=== PATIENT | male | born 1995 | race Caucasian/White ===

== ENCOUNTER 2021-01-24 17:13 | Emergency (ER) | payer MEDICAID, SELFPAY ==
[2021-01-24 17:14] VITALS: BP 123/63; PULSE 66; RESP 14; TEMP 36.7; O2SAT 100; BMI 17.2
--- NOTE | 2021-01-24 17:41 | RAD_ITS ---
STUDY: X-RAY - FACIAL BONES REASON FOR STUDY: Male, 25 years old. lip foreign body -- UNABLE TO REMOVE LIP RING- patient believes to have lost his other lip piercing on his left side of lip. TECHNIQUE: 3 view(s) of the facial bones. COMPARISON: None. FINDINGS: 1.42 cm semicircular metallic jewelry of the lip noted. No additional radiopaque foreign body is seen. Multiple dental fillings noted. Normal bilateral frontozygomatic and zygomatic-temporal arches. Normal bilateral medial and inferior orbital carrasco. Normal bilateral orbits. Normal visualized nasal bones. Normal anterior nasal spine. The remaining visualized osseous structures are normal. There is no demonstrated fracture. Normal visualized paranasal sinuses. RAD/Facial Bones min 3 Views IMPRESSION: 1.42 cm semicircular metallic jewelry of the lip noted. No additional radiopaque foreign body is seen. Multiple dental fillings noted. Electronically Signed: Luis Stout MD at 19:29 EDT , Service support ,
--- NOTE | 2021-01-24 17:42 | EX.ED.DYSGE1 ---
HPI History of Present Illness Chief Complaint: Foreign Body Informant: patient Narrative Narrative: Patient is concerned about a lip foreign body. He removed his left lip ring yesterday and he is concerned that one of the ball caps on the and is stuck in his soft tissue. He feels a hard nodule in this area. He denies any pain. He is not sure if he remove the entire ring at that time. PFSH PFSH Allergy/AdvReac Type Severity Reaction Status Date / Time No Known Allergies Allergy Verified 01/24/21 17:14 ROS ROS ED Constitutional Constitutional ED: Denies chills or fever(s) Eyes Eyes: Denies blurry vision, change in vision, diplopia or loss of vision ENT ENT ED: Reports other; Denies ear pain, rhinorrhea or sore throat Cardiovascular Cardiovascular: Denies chest pain, palpitations or racing heartbeat Respiratory/Chest Respiratory/Chest: Denies cough, dyspnea, dyspnea on exertion or sputum Gastrointestinal Gastrointestinal: Denies abdominal pain, diarrhea, nausea or vomiting Genitourinary Genitourinary ED: Denies dysuria, hematuria or urinary frequency Musculoskeletal Musculoskeletal: Denies back pain, myalgias or neck pain Integumentary Denies abscess or rash Neurologic Neurologic: Denies headache(s) or weakness Psychiatric Psychiatric: Denies anxiety or depression Endocrine Endocrinology: Denies polydipsia or polyuria Hematologic/Lymphatic Hematologic/Lymphatic: Denies easy bleeding or easy bruising Allergic/Immunologic Allergic/Immunologic ED: Denies urticaria EXAM Physical Exam Const Vital Signs: 01/24/21 17:14 Temperature 98.0 F Temperature Source Temporal Pulse Rate 66 Respiratory Rate 14 Blood Pressure 123/63 H Blood Pressure Mean 83 Pulse Ox 100 Oxygen Delivery Method Room Air Positive well nourished and well developed General Appearance ED: well developed HEENT HEENT Narrative: The left lower lip just below the vermilion border does have a nodule. No foreign body is seen from the skin. Negative for trauma or tenderness Eyes PERRL and EOMs intact bilaterally Neck supple Neuro oriented x3 and CN's II-XII intact bilaterally Sensorium / Orientation: alert Motor Exam: strength 5/5 throughout Psych mental status grossly normal Skin no rashes or lesions noted MDM MDM MDM Narrative Medical decision making narrative: X-rays of the face were obtained and shows no foreign bodies. He will be discharged Discharge Plan Triage Chief Complaint: Foreign Body ED Provider: Max Gaston Dx/Rx/DC Orders Clinical Impression: No problem, feared complaint unfounded Instructions: ED Foreign Body Soft Tissue Primary Care Provider: Care Physician,No Primary Referrals: Care Physician,No Primary [Primary Care Provider] - Disposition Disposition: Home, self care
== END 2021-01-24 18:36 | disposition home or self-care (01) ==
PROVIDERS: Emergency Provider Emergency Medicine
DX: Z71.1 Person with feared health complaint in whom no diagnosis is made (principal)
CPT/HCPCS: 70150; 99282

== ENCOUNTER 2021-04-26 14:45 | Emergency (ER) | payer MEDICAID, SELFPAY ==
[2021-04-26 14:45] VITALS: BP 114/66; PULSE 60; RESP 15; TEMP 36.4; O2SAT 100; BMI 17.5
--- NOTE | 2021-04-26 17:40 | EDS_ITS ---
HPI History of Present Illness Chief Complaint: Eye Problem Narrative Narrative: Patient presents with bilateral wrist pain, right eye pain and some redness for the past 2 to 3 days. No vision changes. No fever chills. The wrist pain is chronic he works with his hands and this is been ongoing for months to years. [facility] Home Medications Unobtainable 01/24/21 [History Last Taken Unknown] Allergy/AdvReac Type Severity Reaction Status Date / Time No Known Allergies Allergy Verified 01/24/21 17:14 Social History Smoking Status: Unknown if ever smoked ROS ROS ED ROS Narrative Past medical history: Reviewed, unremarkable Medications: Reviewed Social history: Noncontributory Review of systems: All systems negative except as indicated General: No fever Eyes: No visual changes, right eye lateral redness ENT: No upper airway congestion, normal voice Neck: No neck pain Cardiovascular: No chest pain Respiratory: No shortness of breath or cough Gastrointestinal: No abdominal pain, nausea vomiting or diarrhea Genitourinary: No dysuria Musculoskeletal: Wrist pain. Skin: No rash EXAM Physical Exam Narrative Exam Narrative: Physical exam General: Well nourished, Well developed, No Acute Distress Head: Normocephalic, Atraumatic Eyes: Conjunctiva not pale. Right eye shows very slight conjunctivitis lateral eye region does not involved the central medial part of the eye. No foreign body. ENT: Moist mucous membranes Neck: Supple, Nontender, No lymphadenopathy Cardiovascular: Regular rate, Regular rhythm Respiratory: No distress, CTA bilaterally Abdomen: Soft, Nontender, Nondistended Back: Nontender, Normal Inspection. Negative for: CVA tenderness Extremities: Bilateral wrist pain but full range of motion without any difficulty, no redness no effusions. Skin: Normal color, No rash Neurological: Alert, Normal Strength, Normal Sensation Const Vital Signs: 04/26/21 14:45 Temperature 97.5 F L Temperature Source Temporal Pulse Rate 60 Respiratory Rate 15 Blood Pressure 114/66 Blood Pressure Mean 82 Pulse Ox 100 Oxygen Delivery Method Room Air MDM MDM MDM Narrative Medical decision making narrative: Patient appears well, I will treat for conjunctivitis, stressed wrist pain he likely has mild arthritis or overuse syndrome. Regardless he is still to decrease his work and follow-up with PCP Discharge Plan Triage Chief Complaint: Eye Problem ED Provider: Anibal Lion Dx/Rx/DC Orders Clinical Impression: Conjunctivitis, Acute wrist pain Instructions: ED Conjunctivitis, Nonspecific Prescriptions: No Action Unobtainable RF: 0 Primary Care Provider: Care Physician,No Primary Referrals: Care Physician,No Primary [Primary Care Provider] - Disposition Disposition: Home, Self Care
== END 2021-04-26 18:01 | disposition home or self-care (01) ==
PROVIDERS: Emergency Provider Emergency Medicine
DX: H10.31 Unspecified acute conjunctivitis, right eye (principal); M25.531 Pain in right wrist; M25.532 Pain in left wrist
CPT/HCPCS: 99283

== ENCOUNTER 2021-10-04 08:36 | Emergency (ER) | payer MEDICAID, SELFPAY ==
[2021-10-04 08:36] VITALS: BP 134/78; PULSE 79; RESP 20; TEMP 36.8; O2SAT 100; BMI 17.2
--- NOTE | 2021-10-04 08:50 | EX.ED.DYSGE1 ---
HPI History of Present Illness Chief Complaint: Back Informant: patient Narrative Narrative: 26-year-old male presenting to the emergency department with a chief complaint of low back pain. Patient states that he woke yesterday morning with low back discomfort. He states that it feels like his muscles are tight and. He denies any radicular symptoms no bowel or bladder dysfunction. No fevers or rashes. No IV drug use. No red flag history. Patient states he has a history of scoliosis and notes that its been several years since he has had a problem with his back. He notes that he believes he slept wrong in the bed which resulted in his back injury [facility] Medical History (Updated 10/04/21 @ 08:[address] Antonio Rowe DO) Scoliosis Home Medications cyclobenzaprine 10 mg PO TID PRN #20 tablet 10/04/21 [Rx Last Taken Unknown] ibuprofen 600 mg PO Q6H PRN PRN #20 tablet 10/04/21 [Rx Last Taken Unknown] Allergy/AdvReac Type Severity Reaction Status Date / Time No Known Allergies Allergy Verified 10/04/21 08:39 Social History (Updated 10/04/21 @ 08:[address] Antonio Rowe DO) current gender identity: male Smoking Status: Unknown if ever smoked ROS ROS ED Constitutional Constitutional ED: Denies chills, fever(s) or weight loss Eyes Eyes: Denies change in vision or diplopia ENT ENT ED: Denies ear pain, rhinorrhea or sore throat Cardiovascular Cardiovascular: Denies chest pain, orthopnea, palpitations or racing heartbeat Respiratory/Chest Respiratory/Chest: Denies cough, dyspnea or orthopnea Gastrointestinal Gastrointestinal: Denies abdominal pain, diarrhea, nausea or vomiting Genitourinary Genitourinary ED: Denies dysuria, hematuria or urinary frequency Musculoskeletal Musculoskeletal: Reports back pain; Denies arthralgias or myalgias Integumentary Denies abscess or rash Neurologic Neurologic: Denies headache(s) or weakness Psychiatric Psychiatric: Denies anxiety, depression, suicidal ideation or suicidal thoughts Endocrine Endocrinology: Denies polydipsia, polyphagia or polyuria Allergic/Immunologic Allergic/Immunologic ED: Denies mouth swelling, tongue swelling or urticaria EXAM Physical Exam Const Vital Signs: 10/04/21 08:36 Temperature 98.2 F Temperature Source Oral Pulse Rate 79 Respiratory Rate 20 H Blood Pressure 134/78 H Blood Pressure Mean 96 Pulse Ox 100 Oxygen Delivery Method Room Air Positive well nourished and well developed General Appearance ED: well developed HEENT Reports normocephalic, head/scalp atraumatic, TM's clear and moist mucous membranes Negative for trauma Tympanic Membrane ED: Yes TM's clear Eyes PERRL and EOMs intact bilaterally Neck no lymphadenopathy, supple and no JVD Resp normal respiratory effort and clear to auscultation bilaterally Cardio regular rate, regular rhythm and no murmurs GI normal to inspection, nondistended, normoactive bowel sounds and non-tender Palpation: soft Back/Spine no CVA tenderness and normal ROM Back/Spine Narrative: Tender to palpation of the lumbar paraspinal musculature. There is no rashes or swelling to suggest underlying infection. Extremity normal to inspection General Extremety ED: Negative for edema General Extremity: Negative for edema Neuro oriented x3 and CN's II-XII intact bilaterally Neuro Narrative: +2 patellar and Achilles reflex Sensorium / Orientation: alert Motor Exam: strength 5/5 throughout Psych mental status grossly normal Mood & Affect: Negative for depressed or tearful Skin no rashes or lesions noted and no wounds MDM MDM MDM Narrative Medical decision making narrative: Patient will be started on anti-inflammatories as well as Flexeril. He needs a work note. Return if worsening or concerns Discharge Plan Triage Chief Complaint: Back ED Provider: Antonio Rowe Dx/Rx/DC Orders Clinical Impression: Lumbar paraspinal muscle spasm, Acute low back pain Instructions: Relieving Back Pain Prescriptions: New cyclobenzaprine [cyclobenzaprine] 10 MG tablet 10 mg PO TID PRN (Reason: Muscle Spasm) Qty: 20 RF: 0 ibuprofen 600 MG tablet 600 mg PO Q6H PRN PRN (Reason: fever or pain) Qty: 20 RF: 0 Primary Care Provider: Care Physician,No Primary Referrals: Luis Manuel Ramirez MD [STAFF PHYSICIAN] - As Needed Care Physician,No Primary [Primary Care Provider] - Disposition Disposition: Home, Self Care
== END 2021-10-04 09:16 | disposition home or self-care (01) ==
LOC: ED 09:05
PROVIDERS: Emergency Provider Emergency Medicine; Visit Provider Emergency Medicine
DX: M54.50 Low back pain, unspecified (principal); M62.830 Muscle spasm of back; M41.9 Scoliosis, unspecified
CPT/HCPCS: 99281; 99282

== ENCOUNTER 2022-01-15 17:00 | Emergency (ER) | payer MEDICAID, SELFPAY ==
[2022-01-15 17:01] VITALS: BP 105/72; PULSE 50; RESP 14; TEMP 36.8; O2SAT 97; BMI 17.2
--- NOTE | 2022-01-15 17:24 | EX.ED.DYSGE1 ---
HPI History of Present Illness Chief Complaint: Abd Pain Informant: patient Narrative Narrative: 26-year-old male states that this morning both he and his developed diarrhea and vomiting. No fevers. No URI symptoms. He describes the diarrhea as green. He also states that since the age of 10 he has had chronic back pain strictly on the right. He states he was diagnosed with scoliosis. I would like to know why his back is hurting him what to do. He has no primary care doctor. [facility] Medical History Scoliosis Home Medications cyclobenzaprine 10 mg PO TID PRN #20 tablet 10/04/21 [Rx Last Taken Unknown] ibuprofen 600 mg PO Q6H PRN PRN #20 tablet 10/04/21 [Rx Last Taken Unknown] ondansetron 4 mg PO Q6H PRN PRN #20 tab 01/15/22 [Rx Last Taken Unknown] Allergy/AdvReac Type Severity Reaction Status Date / Time No Known Allergies Allergy Verified 01/15/22 17:01 Social History (Updated 01/15/22 @ 17:[address] Antonio Rowe DO) current gender identity: male Smoking Status: Current every day smoker tobacco type: cigarettes ROS ROS ED Constitutional Constitutional ED: Denies chills or weight loss Eyes Eyes: Denies change in vision or diplopia ENT ENT ED: Denies ear pain, rhinorrhea or sore throat Cardiovascular Cardiovascular: Denies chest pain, orthopnea, palpitations or racing heartbeat Respiratory/Chest Respiratory/Chest: Denies cough, dyspnea or orthopnea Gastrointestinal Gastrointestinal: Reports diarrhea, nausea and vomiting; Denies abdominal pain Genitourinary Genitourinary ED: Denies dysuria, hematuria or urinary frequency Musculoskeletal Musculoskeletal: Reports back pain; Denies arthralgias or myalgias Integumentary Denies abscess or rash Neurologic Neurologic: Denies headache(s) or weakness Psychiatric Psychiatric: Denies anxiety, depression, suicidal ideation or suicidal thoughts Endocrine Endocrinology: Denies polydipsia, polyphagia or polyuria Allergic/Immunologic Allergic/Immunologic ED: Denies mouth swelling, tongue swelling or urticaria EXAM Physical Exam Const Vital Signs: 01/15/22 17:01 Temperature 98.2 F Temperature Source Temporal Pulse Rate 50 L Respiratory Rate 14 Blood Pressure 105/72 Blood Pressure Mean 83 Pulse Ox 97 Oxygen Delivery Method Room Air Positive well nourished and well developed General Appearance ED: well developed HEENT Reports normocephalic, head/scalp atraumatic, TM's clear and moist mucous membranes Negative for trauma Tympanic Membrane ED: Yes TM's clear Eyes PERRL and EOMs intact bilaterally Neck no lymphadenopathy, supple and no JVD Resp normal respiratory effort and clear to auscultation bilaterally Cardio regular rate, regular rhythm and no murmurs GI normal to inspection, nondistended, normoactive bowel sounds and non-tender Palpation: soft Back/Spine no CVA tenderness and normal ROM Extremity normal to inspection General Extremety ED: Negative for edema General Extremity: Negative for edema Neuro oriented x3 and CN's II-XII intact bilaterally Sensorium / Orientation: alert Motor Exam: strength 5/5 throughout Psych mental status grossly normal Mood & Affect: Negative for depressed or tearful Skin no rashes or lesions noted and no wounds MDM MDM MDM Narrative Medical decision making narrative: Basic blood work was normal including a white count of 8.4. Lipase CMP negative. Patient was encouraged to establish primary care as he has chronic low back issues and is not something were going to be able to treat in the emergency department. He received IV fluids Zofran and Imodium. I will write for Zofran at home. Continue Imodium Lab Data Attestation: I reviewed the patient's lab results. Labs: Laboratory Results - last 24 hr 01/15/22 01/15/22 18:00 18:00 WBC 8.4 RBC 4.59 L Hgb 14.4 Hct 41.2 MCV 89.8 MCH 31.4 MCHC 35.0 RDW Std Deviation 39.2 RDW Coeff of Patti 12.1 Plt Count 170 MPV 8.6 Immature Gran % (Auto) 0.200 Neut % (Auto) 75.4 H Lymph % (Auto) 14.1 L [place] % (Auto) 6.4 Eos % (Auto) 3.3 Baso % (Auto) 0.6 Absolute Neuts (auto) 6.3 Absolute Lymphs (auto) 1.19 Nucleated RBC % 0 Sodium 141 Potassium 3.5 Chloride 107 Carbon Dioxide 29.0 Anion Gap 5 BUN 12 Creatinine 0.92 Estim Creat Clear Calc 95.87 Est GFR (MDRD) Af Amer 127 Est GFR (MDRD) Non-Af 105 BUN/Creatinine Ratio 13.1 Glucose 102 Calcium 9.3 Total Bilirubin 1.60 H AST 13 L ALT 17 Alkaline Phosphatase 58 Total Protein 7.1 Albumin 4.2 Globulin 2.9 Albumin/Globulin Ratio 1.4 Lipase 109 Discharge Plan Triage Chief Complaint: Abd Pain ED Provider: Antonio Rowe Dx/Rx/DC Orders Clinical Impression: Gastroenteritis, Chronic back pain Instructions: ED Back and Neck Pain, General, ED Gastroenteritis, Viral (Adult) Prescriptions: New ondansetron [ondansetron] 4 MG tablet 4 mg PO Q6H PRN PRN (Reason: Nausea) Qty: 20 RF: 0 No Action cyclobenzaprine [cyclobenzaprine] 10 MG tablet 10 mg PO TID PRN (Reason: Muscle Spasm) Qty: 20 RF: 0 ibuprofen 600 MG tablet 600 mg PO Q6H PRN PRN (Reason: fever or pain) Qty: 20 RF: 0 Primary Care Provider: Care Physician,No Primary Referrals: Kodak Persaud MD [STAFF PHYSICIAN] - As Needed (for primary care) Care Physician,No Primary [Primary Care Provider] - Disposition Disposition: Home, Self Care
[2022-01-15] MEDS: Loperamide 2 MG Capsule 4 MG PO (17:58)
[2022-01-15] MEDS: Ondansetron 4 MG/2 ML Vial IV (17:58)
[2022-01-15] MEDS: 0.9% Normal Saline 1,000 ML 1000 ML IV (17:59)
[2022-01-15 18:14] LABS: Absolute Lymphocyte Count 1.19 X10^3/uL (0.83-4.51); Absolute Neutrophil Count 6.3 X10^3/uL (2.0-7.7); Basophil# 0.05 X10^3/uL; Basophil% 0.6 % (0-1); Eosinophil# 0.28 X10^3/uL; Eosinophils% 3.3 % (0-5); Hematocrit 41.2 % (40-54); Hemoglobin 14.4 g/dL (13.0-16.5); Lymphocyte # 1.19 X10^3/ul (0.83-4.51); Lymphocyte % 14.1 % (19-41); Mean Corpuscular Hgb 31.4 pg (27.0-32.0); Mean Corpuscular Volume 89.8 fL (80-94); Mean Platelet Vol. 8.6 fl (6.2-12.0); Monocyte# 0.54 X10^3/uL; Monocyte% 6.4 % (0-10); NRBC Flagged by Analyzer 0 % (0-5); Neutrophil # 6.33 X10^3/uL (2.7-7.7); Neutrophil % 75.4 % (47-70); Platelet Count 170 K/mm3 (150-450); RBC Distribution Width CV 12.1 % (11.6-14.6); RBC Distribution Width SD 39.2 fl (35.1-43.9); Red Blood Count 4.59 M/mm3 (4.6-6.2); White Blood Count 8.4 K/mm3 (4.4-11.0)
[2022-01-15 18:27] LABS: ALB/GLOB Ratio 1.4 RATIO (0.9-2.4); AST(SGOT) 13 U/L (15-37); Alanine Aminotransfer ALT/SGPT 17 U/L (16-61); Albumin, Serum 4.2 g/dL (3.2-5.0); Alkaline Phosphatase 58 U/L (45-117); Anion Gap 5 (5-15); BUN 12 mg/dL (7-18); BUN/Creat Ratio 13.1 RATIO (10-20); Calcium,Total 9.3 mg/dL (8.5-10.1); Chloride 107 mmol/L (98-107); Creatinine, Serum 0.92 mg/dL (0.70-1.30); EST Glomerular Filtration Rate 105 mL/min (>60); Est Glom Filt Rate - Afr Amer 127 mL/min (>60); Estimated Creatinine Clearance 95.87 ml/min; Globulin 2.9 g/dL (2.2-4.2); Glucose 102 mg/dL (74-106); Lipase 109 U/L (73-393); Potassium 3.5 mmol/L (3.5-5.1); Protein, Total 7.1 g/dL (6.4-8.2); Sodium Level 141 mmol/L (136-145)
== END 2022-01-15 18:47 | disposition home or self-care (01) ==
PROVIDERS: Emergency Provider Emergency Medicine; Visit Provider Emergency Medicine
DX: K52.9 Noninfective gastroenteritis and colitis, unspecified (principal); M54.9 Dorsalgia, unspecified; G89.29 Other chronic pain; F17.210 Nicotine dependence, cigarettes, uncomplicated
CPT/HCPCS: 80053; 83690; 85025; 96361; 96374; 99284; J7030; A4216; J2405

== ENCOUNTER 2022-03-04 10:43 | Emergency (ER) | payer MEDICAID, SELFPAY ==
[2022-03-04 10:44] VITALS: BP 110/71; PULSE 74; RESP 16; TEMP 36.3; O2SAT 98; BMI 18.1
--- NOTE | 2022-03-04 11:00 | ED.VIS.GI ---
HPI HPI - GI History of Present Illness Chief Complaint: Abd Pain Informant: patient Abdominal Pain/Flank Pain Onset: Days (3) Timing: Intermittent Quality: Cramping Location: LLQ Worsened by: Nothing Relieved by: Nothing Nausea/Vomiting/Emesis GI Symptom: Positive for Nausea and Vomiting Onset: Days (3) Quality: Positive for Nonbilious; Negative for Blood streaks, Coffee ground or Hematemesis Episodes: 3 Diarrhea/Melena/Hematochezia GI Symptom: Negative for Diarrhea, Melena or Hematochezia Associated Symptoms Associated Symptoms: Negative for Dysuria, Frequency or Hematuria Narrative Narrative: Patient presents with abdominal pain, nausea, and vomiting that has been intermittent over the last 3 days. Patient states that he has had 3 episodes of vomiting over the last 3 days. Patient states that his stomach contents that he vomits. Patient denies any hematemesis or coffee-ground emesis. Patient denies any diarrhea, melena, or hematochezia. Patient states his pain is mainly over the left lower quadrant. Patient describes it as cramping. Patient states nothing makes it better nothing makes it worse. Patient denies any dysuria or hematuria. Patient denies any urinary frequency. [facility] Medical History Scoliosis Home Medications cyclobenzaprine 10 mg tablet 10 mg PO TID PRN Muscle Spasm #20 TABLETS 10/04/21 [Rx Last Taken Unknown] ibuprofen 600 mg tablet 600 mg PO Q6H PRN PRN fever or pain #20 TABLETS 10/04/21 [Rx Last Taken Unknown] ondansetron 4 mg disintegrating tablet 4 mg PO Q6H PRN PRN Nausea #10 tabs 03/04/22 [Rx Last Taken Unknown] Allergy/AdvReac Type Severity Reaction Status Date / Time No Known Allergies Allergy Verified 03/04/22 10:46 Surgical History no surgical history no surgical history Social History Smoking Status: Current every day smoker tobacco type: cigarettes ROS ROS ED Constitutional Constitutional ED: Denies chills or fever(s) Eyes Eyes: Denies blurry vision or change in vision ENT ENT ED: Denies rhinorrhea or sore throat Cardiovascular Cardiovascular: Denies chest pain or palpitations Respiratory/Chest Respiratory/Chest: Denies cough or dyspnea Gastrointestinal Gastrointestinal: Reports abdominal pain, nausea and vomiting Genitourinary Genitourinary ED: Denies dysuria or hematuria Musculoskeletal Musculoskeletal: Reports back pain; Denies neck pain Integumentary Denies abscess or rash Neurologic Neurologic: Reports headache(s); Denies weakness Allergic/Immunologic Allergic/Immunologic ED: Denies mouth swelling or urticaria EXAM Physical Exam Const Vital Signs: 03/04/22 10:44 03/04/22 13:08 Temperature 97.4 F L Temperature Source Temporal Pulse Rate 74 51 L Respiratory Rate 16 12 Blood Pressure 110/71 128/108 H Blood Pressure Mean 84 114 Pulse Ox 98 98 Oxygen Delivery Method Room Air Room Air Positive well nourished and well developed General Appearance ED: well developed and NAD HEENT Reports moist mucous membranes Resp normal respiratory effort and clear to auscultation bilaterally Cardio regular rate and regular rhythm GI non-distended Auscultation: normoactive bowel sounds Palpation: soft and tender LLQ; Negative for guarding or rebound tenderness present Extremity full ROM Neuro CN's II-XII intact bilaterally, moves all extremities and no sensory deficits noted Sensorium / Orientation: alert Motor Exam: strength 5/5 throughout Psych mental status grossly normal MDM MDM MDM Narrative Medical decision making narrative: Patient was given IV fluids, Zofran, and Bentyl. Patient felt better after this. CBC was within normal limits. Comprehensive metabolic profile was within normal limits. Urinalysis shows occult blood of 150 with 5-10 red blood cells. There is no evidence of urinary tract infection. Patient was advised of his findings. Patient was given prescription for Zofran. Patient was instructed to follow-up with a primary care physician in 5 to 7 days. Patient was instructed to return if worse in any way. Patient understood and was agreeable with the plan. All questions were answered. Lab Data Attestation: I reviewed the patient's lab results. Labs: Laboratory Results - last 24 hr 03/04/22 03/04/22 03/04/22 11:10 11:10 11:39 WBC 6.5 RBC 4.75 Hgb 15.1 Hct 42.1 MCV 88.6 MCH 31.8 MCHC 35.9 RDW Std Deviation 38.6 RDW Coeff of Patti 11.9 Plt Count 199 MPV 9.0 Immature Gran % (Auto) 0.200 Neut % (Auto) 52.9 Lymph % (Auto) 31.2 [place] % (Auto) 8.4 Eos % (Auto) 6.7 H Baso % (Auto) 0.6 Absolute Neuts (auto) 3.5 Absolute Lymphs (auto) 2.04 Nucleated RBC % 0 Sodium 140 Potassium 3.7 Chloride 104 Carbon Dioxide 30.0 Anion Gap 6 BUN 10 Creatinine 0.98 Estim Creat Clear Calc 94.43 Est GFR (MDRD) Af Amer 117 Est GFR (MDRD) Non-Af 97 BUN/Creatinine Ratio 10.2 Glucose 102 Calcium 9.4 Total Bilirubin 1.00 AST 14 L ALT 18 Alkaline Phosphatase 69 Total Protein 7.3 Albumin 4.2 Globulin 3.1 Albumin/Globulin Ratio 1.4 Urine Color Yellow Urine Clarity Clear Urine pH 6.0 Ur Specific [place] 1.020 Urine Protein Negative Urine Glucose (UA) Normal Urine Ketones Negative Urine Occult Blood 150 H Urine Nitrite Negative Urine Bilirubin Negative Urine Urobilinogen Normal Ur Leukocyte Esterase 25 H Urine RBC 5-10 SEEN Urine WBC 0-5 SEEN Ur Squamous Epith Cells 0 SEEN Urine Bacteria 0 SEEN Urine Mucus 0 SEEN Discharge Plan Triage Chief Complaint: Abd Pain ED Provider: Kodak Bazzi Dx/Rx/DC Orders Clinical Impression: Abdominal pain, Nausea and vomiting Instructions: ED Abdominal Pain Unkn Cause Male... Prescriptions: Continued ondansetron 4 MG tablet 4 mg PO Q6H PRN PRN (Reason: Nausea) Qty: 10 0RF No Action cyclobenzaprine [cyclobenzaprine] 10 MG tablet 10 mg PO TID PRN (Reason: Muscle Spasm) Qty: 20 0RF ibuprofen 600 MG tablet 600 mg PO Q6H PRN PRN (Reason: fever or pain) Qty: 20 0RF Stand Alone Forms: ED Work / School Excuse Primary Care Provider: Care Physician,No Primary Referrals: Gail Murrell MD [STAFF PHYSICIAN] - 5-7 Days Care Physician,No Primary [Primary Care Provider] - Disposition Disposition: Home, Self Care
[2022-03-04 11:23] LABS: Absolute Lymphocyte Count 2.04 X10^3/uL (0.83-4.51); Absolute Neutrophil Count 3.5 X10^3/uL (2.0-7.7); Basophil# 0.04 X10^3/uL; Basophil% 0.6 % (0-1); Eosinophil# 0.44 X10^3/uL; Eosinophils% 6.7 % (0-5); Hematocrit 42.1 % (40-54); Hemoglobin 15.1 g/dL (13.0-16.5); Lymphocyte # 2.04 X10^3/ul (0.83-4.51); Lymphocyte % 31.2 % (19-41); Mean Corp Hgb Conc 35.9 g/dL (32-36); Mean Corpuscular Hgb 31.8 pg (27.0-32.0); Mean Corpuscular Volume 88.6 fL (80-94); Monocyte# 0.55 X10^3/uL; Monocyte% 8.4 % (0-10); NRBC Flagged by Analyzer 0 % (0-5); Neutrophil # 3.46 X10^3/uL (2.7-7.7); Neutrophil % 52.9 % (47-70); Platelet Count 199 K/mm3 (150-450); RBC Distribution Width CV 11.9 % (11.6-14.6); RBC Distribution Width SD 38.6 fl (35.1-43.9); Red Blood Count 4.75 M/mm3 (4.6-6.2); White Blood Count 6.5 K/mm3 (4.4-11.0)
[2022-03-04] MEDS: 0.9% Normal Saline 1,000 ML 1000 ML IV (11:29)
[2022-03-04] MEDS: Ondansetron 4 MG/2 ML Vial IV (11:29)
[2022-03-04] MEDS: Dicyclomine 20 MG/2 ML Vial IM (11:29)
[2022-03-04 11:44] LABS: ALB/GLOB Ratio 1.4 RATIO (0.9-2.4); AST(SGOT) 14 U/L (15-37); Alanine Aminotransfer ALT/SGPT 18 U/L (16-61); Albumin, Serum 4.2 g/dL (3.2-5.0); Alkaline Phosphatase 69 U/L (45-117); Anion Gap 6 (5-15); BUN 10 mg/dL (7-18); BUN/Creat Ratio 10.2 RATIO (10-20); Calcium,Total 9.4 mg/dL (8.5-10.1); Chloride 104 mmol/L (98-107); Creatinine, Serum 0.98 mg/dL (0.70-1.30); EST Glomerular Filtration Rate 97 mL/min (>60); Est Glom Filt Rate - Afr Amer 117 mL/min (>60); Estimated Creatinine Clearance 94.43 ml/min; Globulin 3.1 g/dL (2.2-4.2); Glucose 102 mg/dL (74-106); Potassium 3.7 mmol/L (3.5-5.1); Protein, Total 7.3 g/dL (6.4-8.2); Sodium Level 140 mmol/L (136-145)
[2022-03-04 11:45] LABS: Bacteria 0 SEEN /hpf (None Seen); Mucous, Urine 0 SEEN /hpf (<or=2+); Squamous Epithelial Cells - UA 0 SEEN /hpf (0-5)
[2022-03-04 11:52] LABS: Color, Urine Yellow (Yellow); Glucose, Dipstick Normal (Normal); Ketone-Dipstick Negative (Negative); Leukocyte Esterase-Dipstick 25 /ul (Negative); Nitrite-Dipstick Negative (Negative); Occult Blood-Urine 150 /ul (Negative); Protein-Dipstick Negative (Negative); Urine Bilirubin Dipstick Negative (Negative); Urine Clarity Clear (Clear); Urine Urobilinogen Normal (Normal)
[2022-03-04 11:58] LABS: Red Blood Cells-Urine 5-10 SEEN /hpf (0-5); White Blood Cells 0-5 SEEN /hpf (0-5)
[2022-03-04 13:08] VITALS: BP 128/108; PULSE 51; RESP 12; O2SAT 98
== END 2022-03-04 13:29 | disposition home or self-care (01) ==
PROVIDERS: Emergency Provider Emergency Medicine; Visit Provider Emergency Medicine
DX: R10.9 Unspecified abdominal pain (principal); R11.2 Nausea with vomiting, unspecified; F17.210 Nicotine dependence, cigarettes, uncomplicated
CPT/HCPCS: 80053; 81001; 85025; 96361; 96372; 96374; 99283; J7030; A4216; J2405

== ENCOUNTER 2022-04-24 18:45 | Emergency (ER) | payer MEDICAID, SELFPAY ==
[2022-04-24 18:45] VITALS: BP 103/61; PULSE 78; RESP 18; TEMP 36.6; O2SAT 98; BMI 18.3
--- NOTE | 2022-04-24 20:30 | ED.VIS.BACK ---
HPI History of Present Illness Chief Complaint: Back Narrative Narrative: 27-year-old male presenting with right lumbar muscle strain. Patient states that he worked a 14-hour shift before this started hurting. He states he does a lot of bending and lifting. Patient denies any direct trauma. He denies paresthesias. Patient denies radiation of the pain. No loss of bladder bowel control or urinary retention. No saddle anesthesia. Patient states that he has had this in the past and its in a similar place as before. He states that muscle relaxers typically help with this. [facility] Medical History Scoliosis Home Medications cyclobenzaprine 10 mg tablet 10 mg PO TID PRN muscle spasm #14 tabs 04/24/22 [Rx Last Taken Unknown] naproxen 500 mg tablet (Naprosyn) 500 mg PO BID PRN pain #20 tabs 04/24/22 [Rx Last Taken Unknown] Allergy/AdvReac Type Severity Reaction Status Date / Time No Known Allergies Allergy Verified 04/24/22 18:46 Social History Smoking Status: Current every day smoker tobacco type: cigarettes ROS ROS ED Constitutional Constitutional ED: Denies chills or fever(s) Eyes Eyes: Denies change in vision or diplopia ENT ENT ED: Denies rhinorrhea or sore throat Cardiovascular Cardiovascular: Denies chest pain or palpitations Respiratory/Chest Respiratory/Chest: Denies dyspnea or dyspnea on exertion Gastrointestinal Gastrointestinal: Denies abdominal pain, constipation, nausea or vomiting Genitourinary Genitourinary ED: Denies dysuria or hematuria Musculoskeletal Musculoskeletal: Reports back pain; Denies arthralgias Integumentary Denies abscess or Abrasions Neurologic Neurologic: Denies headache(s) Psychiatric Psychiatric: Denies anxiety or depression EXAM Physical Exam Const Vital Signs: 04/24/22 18:45 Temperature 98 F Temperature Source Temporal Pulse Rate 78 Respiratory Rate 18 Blood Pressure 103/61 Blood Pressure Mean 75 Pulse Ox 98 Oxygen Delivery Method Room Air Positive well nourished General Appearance ED: NAD; Negative for pallor HEENT Reports moist mucous membranes Negative for trauma Eyes PERRL and EOMs intact bilaterally Resp normal respiratory effort Auscultation: Negative for rales, rhonchi or wheezes Cardio regular rate and regular rhythm GI normal to inspection, nondistended, normoactive bowel sounds Back/Spine Back/Spine Narrative: Tenderness palpation left lateral lumbar paraspinal musculature. No midline spine deformity, step-off. No CVA tenderness. Neuro oriented x3 Sensorium / Orientation: alert Motor Exam: strength 5/5 throughout Psych mental status grossly normal Skin no rashes or lesions noted General Skin Exam: Negative for jaundice or pallor MDM MDM MDM Narrative Medical decision making narrative: Patient presenting with lumbar strain consistent with previous injuries had. He does admit to lifting and bending before this at work. 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 He states he did this for 14 hours the day before and woke up with pain. He has no spinal tenderness. No signs or symptoms of cauda equina syndrome or infectious etiology. Patient is driving tonight so I cannot give him muscle relaxers. I offered him Toradol but he declined. I will give him Naprosyn orally. Patient given prescription for Naprosyn and cyclobenzaprine. He is given outpatient follow-up. Return precautions were discussed. Impression: 1. Lumbar strain Lab Data Attestation: I reviewed the patient's lab results. Discharge Plan Triage Chief Complaint: Back ED Provider: Ahsan Pandya Dx/Rx/DC Orders Instructions: ED Back Spasm, No Trauma Prescriptions: New naproxen [Naprosyn] 500 mg tablet 500 mg PO BID PRN (Reason: pain) Qty: 20 0RF cyclobenzaprine 10 mg tablet 10 mg PO TID PRN (Reason: muscle spasm) Qty: 14 0RF Primary Care Provider: Care Physician,No Primary Referrals: Celina Lopez [facility] [Provider Group] - 3-5 Days Care Physician,No Primary [Primary Care Provider] - Disposition Disposition: Home, Self Care
[2022-04-24] MEDS: Naproxen 500 MG Tablet PO (21:05)
[2022-04-24 21:12] VITALS: BP 100/74; PULSE 73; RESP 18
== END 2022-04-24 21:12 | disposition home or self-care (01) ==
LOC: ED 20:33
PROVIDERS: Emergency Provider Student in an Organized Health Care Education/Training Program; Visit Provider Student in an Organized Health Care Education/Training Program
DX: S39.012A Strain of muscle, fascia and tendon of lower back, initial encounter (principal); X58.XXXA Exposure to other specified factors, initial encounter; F17.210 Nicotine dependence, cigarettes, uncomplicated
CPT/HCPCS: 99283

== ENCOUNTER 2022-06-14 21:02 | Emergency (ER) | payer MEDICAID, SELFPAY ==
[2022-06-14 21:03] VITALS: BP 124/76; PULSE 83; RESP 15; TEMP 36.7; O2SAT 100; BMI 18.8
--- NOTE | 2022-06-14 23:15 | EX.ED.VIS.UR ---
HPI HPI - URI History of Present Illness Chief Complaint: Sore Throat Informant: patient Onset/Context/Timing Onset: Yesterday Context: Gradual Onset Timing: Continuous Quality: Annoying Location: Throat Worsened by: - (Nothing) Relieved by: NSAIDs (Ibuprofen) Associated Symptoms Associated Symptoms: Positive for Headache and Diarrhea; Negative for Nasal Congestion, Sinus Pressure, Myalgias, Nausea, Vomiting, Shortness of Breath, Chest Pain, Nonproductive cough, Hemoptysis or Productive Cough Narrative Narrative: Patient presents with a sore throat that began yesterday. Patient states it is gradually getting worse. Patient describes it as annoying. Patient states that nothing makes it worse. Patient states it is actually better with ibuprofen. Patient also admits to a headache. Patient also states he had 1 episode of diarrhea but has had normal bowel movements since that time. Patient denies any shortness of breath or cough. Patient denies any chest pain. Patient denies any rhinorrhea or chest congestion. ROS ROS ED Constitutional Constitutional ED: Denies chills or fever(s) Eyes Eyes: Denies blurry vision or change in vision ENT ENT ED: Reports sore throat; Denies rhinorrhea Cardiovascular Cardiovascular: Denies chest pain or palpitations Respiratory/Chest Respiratory/Chest: Denies cough or dyspnea Gastrointestinal Gastrointestinal: Denies nausea or vomiting Genitourinary Genitourinary ED: Denies dysuria or hematuria Musculoskeletal Musculoskeletal: Reports neck pain; Denies back pain Integumentary Denies abscess or rash Neurologic Neurologic: Reports headache(s); Denies weakness Allergic/Immunologic Allergic/Immunologic ED: Denies mouth swelling or urticaria [facility] Medical History Scoliosis Home Medications cyclobenzaprine 10 mg tablet 10 mg PO TID PRN muscle spasm #14 tabs 04/24/22 [Rx Last Taken Unknown] naproxen 500 mg tablet (Naprosyn) 500 mg PO BID PRN pain #20 tabs 04/24/22 [Rx Last Taken Unknown] Allergy/AdvReac Type Severity Reaction Status Date / Time No Known Allergies Allergy Verified 06/14/22 21:05 Surgical History no surgical history no surgical history Social History Smoking Status: Current every day smoker tobacco type: cigarettes EXAM Physical Exam Const Vital Signs: 06/14/22 21:03 06/14/22 21:08 Temperature 98.1 F Temperature Source Temporal Pulse Rate 83 Respiratory Rate 15 Respiratory Effort Normal Respiratory Pattern Normal Blood Pressure 124/76 H Blood Pressure Mean 92 Pulse Ox 100 Oxygen Delivery Method Room Air Positive well nourished and well developed General Appearance ED: well developed HEENT Reports moist mucous membranes HEENT Narrative: Oropharynx is mildly erythematous. There are no exudates noted. There is no edema of the oropharynx. Airway is patent. Eyes PERRL and EOMs intact bilaterally Neck no lymphadenopathy, supple, no meningeal signs and no JVD Resp normal respiratory effort and clear to auscultation bilaterally Cardio regular rate, regular rhythm and no murmurs GI normal to inspection, nondistended, normoactive bowel sounds and non-tender Palpation: soft Extremity normal to inspection General Extremety ED: Negative for edema or tenderness General Extremity: Negative for edema Neuro oriented x3, CN's II-XII intact bilaterally and no sensory deficits noted Sensorium / Orientation: alert Motor Exam: strength 5/5 throughout Psych mental status grossly normal Skin no rashes or lesions noted MDM MDM MDM Narrative Medical decision making narrative: COVID-19 rapid antigen was obtained and was negative. Influenza A and influenza B antigens were obtained and were negative. Rapid strep was obtained and was negative. Patient was advised that this is most likely a viral pharyngitis. Patient was instructed to drink plenty of fluids. Patient was instructed to continue ibuprofen and Tylenol as needed for any aches or fevers. Patient was instructed to follow-up with his primary care physician in 5 to 7 days. Patient understood and was agreeable with the plan. All questions were answered. Discharge Plan Triage Chief Complaint: Sore Throat ED Provider: Kodak Bazzi Dx/Rx/DC Orders Clinical Impression: Acute viral pharyngitis Instructions: ED Pharyngitis, Viral Prescriptions: No Action naproxen [Naprosyn] 500 mg tablet 500 mg PO BID PRN (Reason: pain) Qty: 20 0RF cyclobenzaprine 10 mg tablet 10 mg PO TID PRN (Reason: muscle spasm) Qty: 14 0RF Stand Alone Forms: ED Work / School Excuse Primary Care Provider: Care Physician,No Primary Referrals: Celina Lopez [Non-Staff] - 5-7 Days Care Physician,No Primary [Primary Care Provider] - Disposition Disposition: Home, Self Care
== END 2022-06-14 23:31 | disposition home or self-care (01) ==
PROVIDERS: Emergency Provider Emergency Medicine; Visit Provider Emergency Medicine
DX: J02.8 Acute pharyngitis due to other specified organisms (principal); Z20.822 Contact with and (suspected) exposure to COVID-19; B97.89 Other viral agents as the cause of diseases classified elsewhere; M54.2 Cervicalgia; R19.7 Diarrhea, unspecified; R51.9 Headache, unspecified; F17.210 Nicotine dependence, cigarettes, uncomplicated; Z79.1 Long term (current) use of non-steroidal anti-inflammatories (NSAID)
CPT/HCPCS: 87428; 87880; 99282